=== PATIENT | female | born 1990 | race Caucasian/White ===

== ENCOUNTER 2019-05-15 19:10 | Emergency (ER) | payer OTHER ==
[~2019-05-15] VITALS: Ht 170.2 cm; Wt 262.5 kg
[~2019-05-15 19:10] MED LIST: CIPRODEX OTIC7.5 ML OT
[2019-05-15] MEDS ORDERED: PROAIR HFA8.5 GM INH (19:49)
[2019-05-15] MEDS ORDERED: EPIPEN0.3 MG/0.1 IM (19:50)
[2019-05-15 20:19] LABS: ABSOLUTE NEUTROPHILS 6.3 thou/uL (1.4-8.2); BASOPHILS 0.7 % (0.0-2.0); EOSINOPHILS 4.3 % (0.0-3.0); HEMATOCRIT 27.9 % (37.0-47.0); HEMOGLOBIN 8.9 gm/dL (12.0-15.0); LYMPHOCYTES 21.8 % (24.0-44.0); MCH 22.6 pg (26.0-34.0); MCHC 31.8 g/dL (28.0-37.0); MCV 70.9 fL (80.0-100.0); MONOCYTES 4.3 % (1.0-8.0); PLATELET COUNT 302 thou/uL (150-400); POLYS 68.9 % (36.0-66.0); RBC 3.94 mil/uL (4.20-5.00); RDW 17.1 % (10.5-14.5); WBC 9.2 thou/uL (4.0-11.0)
[2019-05-15 20:28] LABS: CALCIUM 9.2 mg/dL (8.5-10.1); CREATININE 0.8 mg/dL (0.6-1.0); POTASSIUM 4.2 mmol/L (3.5-5.1)
[2019-05-15 20:45] LABS: URINE BLOOD 3+ (Negative); URINE CLARITY CLOUDY; URINE COLOR RED; URINE GLUCOSE-RANDOM* NEGATIVE (Negative); URINE KETONES TRACE (Negative); URINE LEUKOCYTES-REFLEX TRACE (Negative); URINE PROTEIN (DIPSTICK) 3+ (Negative); URINE SPECIFIC GRAVITY >= 1.030 (1.005-1.035)
[2019-05-15 20:47] LABS: ICTOTEST (BILI CONFIRMATORY) Negative (Negative); URINE BILIRUBIN NEGATIVE (Negative); URINE NITRITE-REFLEX POSITIVE (Negative)
[2019-05-15 20:59] LABS: BACTERIA-REFLEX 1-9 Few /HPF (None Seen); CASTS None Seen /LPF (None Seen); CRYSTALS None Seen /LPF (None Seen); MUCUS 0-3 Light strn/LPF (None Seen); SQUAMOUS 0-3 Few /LPF (0-3); URINE RBC >20 Many /HPF (0-2); URINE WBC-REFLEX 0-5 Rare /HPF (0-5)
[2019-05-15 23:05] VITALS: BP 178/79
--- NOTE | 2019-05-16 14:25 | EKG ---
[address] [place] [address] ELECTROCARDIOGRAM REPORT Name: ALFREDGERMAN VENCES Room #: [facility]P [facility]ENTER[id number] Admission: 05/15/19 Attend Phys: Discharge: 05/15/19 Date of : 86 Report #: [id number] THIS REPORT FOR: //name// [facility] ED Test Date: 2019-05-15 Test Time: 20:17:15 Pat Name: GERMAN SIMON Department: Room: Gender: F [employer]ician: : [id number] Requested By: Nguyen Welsh Order Number: [id number] MD: Kian Enamorado Measurements Intervals [place] Rate: 94 P: 22 NH: 147 QRS: 6 QRSD: 87 T: 28 QT: 344 QTc: 431 Interpretive Statements Sinus rhythm No previous ECG available for comparison Electronically Signed On 05-16-2019 14:24:40 ALUMINUM 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
== END 2019-05-15 23:07 | disposition short-term general hospital (02) ==
LOC: ER 19:10
PROVIDERS: Nurse Practitioner
DX: D64.9 Anemia, unspecified (principal); N93.9 Abnormal uterine and vaginal bleeding, unspecified; R42 Dizziness and giddiness